=== PATIENT | male | born 1955 | race Caucasian/White ===

== ENCOUNTER 2021-11-18 16:51 | Emergency (ER) | payer MEDICARE, OTHER ==
[~2021-11-18] VITALS: Ht 182.9 cm; Wt 108.9 kg
== END 2021-11-18 23:51 | disposition home or self-care (01) ==
LOC: FER 16:51
DX: K22.89 Other specified disease of esophagus (principal); R91.1 Solitary pulmonary nodule; I10 Essential (primary) hypertension; Z88.8 Allergy status to other drugs, medicaments and biological substances; Z28.310 Unvaccinated for COVID-19
CPT/HCPCS: 71250

== ENCOUNTER → 2021-11-25 | Day surgery (SDC) | payer MEDICARE, OTHER ==
[~2021-11-25] VITALS: Ht 182.9 cm; Wt 111.1 kg
[~2021-11-25] MED LIST: LASIX20 MG PO; LISINOPRIL20 MG PO; TAMSULOSIN HCL0.4 MG PO
== END | disposition home or self-care (01) ==
LOC: FAS 08:09
DX: K31.7 Polyp of stomach and duodenum (principal); K29.80 Duodenitis without bleeding; K22.2 Esophageal obstruction; I10 Essential (primary) hypertension; F41.9 Anxiety disorder, unspecified; E78.00 Pure hypercholesterolemia, unspecified; F32.A Depression, unspecified; Z88.8 Allergy status to other drugs, medicaments and biological substances
CPT/HCPCS: J0171; J2250; J2704; J7120

== ENCOUNTER → 2021-12-23 | Day surgery (SDC) | payer MEDICARE, OTHER ==
[~2021-12-23] VITALS: Ht 182.9 cm; Wt 111.6 kg
[~2021-12-23] MED LIST changes: +PROTONIX40 MG PO; +ULTRAM50 MG PO
== END | disposition home or self-care (01) ==
LOC: FAS 06:04
DX: R93.5 Abnormal findings on diagnostic imaging of other abdominal regions, including retroperitoneum (principal); D12.8 Benign neoplasm of rectum; C78.00 Secondary malignant neoplasm of unspecified lung; K57.30 Diverticulosis of large intestine without perforation or abscess without bleeding; I10 Essential (primary) hypertension; Z88.8 Allergy status to other drugs, medicaments and biological substances
CPT/HCPCS: 71045; 76000; C1788; J0690; J1100; J1644; J1885; J2001; J2250; J2405; J3010; J7120

== ENCOUNTER 2022-03-24 11:47 | Emergency (ER) | payer MEDICARE, OTHER ==
[2022-03-24 12:54] LABS: BASOPHIL 0.6 % (0-2); EOSINOPHIL 1.1 % (0-7); HCT 38.5 % (42.0-52.0); HGB 13.3 g/dl (13.2-18.0); LYMPHOCYTE 29.1 % (15-48); MCH 34.1 pg (25.0-31.0); MCHC 34.5 g/dL (32.0-36.0); MCV 98.7 fL (78.0-100.0); MONOCYTE 8.3 % (0-12); MPV 9.5 fL (6.0-9.5); NEUTROPHIL 60.3 % (41-80); NRBC 0; PLT 102 K/uL (150-400); RDW 16.8 % (11.5-14.0); WBC 3.5 K/uL (4.0-10.5)
[2022-03-24 14:03] LABS: BILIRUBIN NEGATIVE (NEGATIVE); BLOOD NEGATIVE Ery/uL (NEGATIVE); CLARITY CLEAR (CLEAR); COLOR YELLOW (YELLOW); GLUCOSE (U) 1+ mg/dL (NORMAL); LEUKOCYTES NEGATIVE Leu/uL (NEGATIVE); NITRITE NEGATIVE (NEGATIVE); PROTEIN NEGATIVE (NEGATIVE); UROBILINOGEN 0.2 mg/dL (0.2-1.0)
[2022-03-24 14:51] LABS: CREATININE 0.73 mg/dL (0.67-1.17); POTASSIUM 3.7 mmol/L (3.5-5.1)
== END 2022-03-24 15:20 | disposition home or self-care (01) ==
LOC: FER 11:47
PROVIDERS: Nurse Practitioner Family
DX: E86.0 Dehydration (principal); I10 Essential (primary) hypertension; Z85.118 Personal history of other malignant neoplasm of bronchus and lung; Z88.8 Allergy status to other drugs, medicaments and biological substances
CPT/HCPCS: 36415; 70450; 80048; 81003; 85025; 93005; J7030